=== PATIENT | female | born 1990 | race Caucasian/White ===

== ENCOUNTER 2023-05-13 23:29 | Observation (INO) | payer SELFPAY ==
[2023-05-13] MEDS ORDERED: KETOROLAC TROMETHAMINE 30 MG/1 ML VIAL ONE (23:55)
[2023-05-13] MEDS ORDERED: ONDANSETRON 4 MG/2 ML VIAL ONE (23:55)
[2023-05-14] MEDS: SODIUM CHLORIDE 1,000 ML IV ONE (00:21)
[2023-05-14] MEDS: ONDANSETRON 4 MG/2 ML VIAL IVPUSH ONE (00:21)
[2023-05-14] MEDS: KETOROLAC TROMETHAMINE 30 MG/1 ML VIAL IVPUSH ONE (00:21)
[2023-05-14 01:07] LABS: HEMOGLOBIN 12.6 GM/dL (10.7-15.3)
[2023-05-14 01:08] LABS: EPI CELLS 1 /uL (0-25.1); HYALINE CASTS 4 /uL (0-3.1); URINE APPEARANCE CLOUDY; URINE BACTERIA >9,000 /uL (0-1359); URINE BILIRUBIN NEGATIVE (NEGATIVE); URINE COLOR YELLOW; URINE GLUCOSE (UA) NEGATIVE (NEGATIVE); URINE KETONE TRACE (NEGATIVE); URINE LEUK ESTERASE 2+ (NEGATIVE); URINE NITRITE POSITIVE (NEGATIVE); URINE PROTEIN 2+ (NEGATIVE); URINE RBC 389 /uL (0-23.9); URINE WBC 705 /uL (0-25.8)
[2023-05-14 01:16] LABS: HEMATOCRIT 37.4 % (32.4-45.2); MCH 31.4 pg (25.7-33.7); MCHC 33.5 g/dl (32.0-36.0); MEAN CELL VOLUME 93.6 fl (80-96); MEAN PLT VOLUME 8.4 fl (7.5-11.1); PLATELET COUNT 296 10^3/uL (134-434); RDW 14.2 % (11.6-15.6); WHITE BLOOD COUNT 15.3 K/mm3 (4.0-10.0)
[2023-05-14 01:25] LABS: POTASSIUM 3.7 mmol/L (3.5-5.1)
[2023-05-14 01:27] LABS: CALCIUM 9.2 mg/dL (8.5-10.1)
[2023-05-14 01:28] LABS: ALBUMIN 3.3 g/dl (3.4-5.0)
[2023-05-14 01:31] LABS: CREATININE 0.9 mg/dL (0.55-1.3)
[2023-05-14 01:32] LABS: BILIRUBIN,TOTAL 1.8 mg/dL (0.2-1); TOT PROT 7.4 g/dl (6.4-8.2)
[2023-05-14] MEDS ORDERED: cefTRIAXone SODIUM 1 GM VIAL ONE (02:09)
[2023-05-14] MEDS: CEFTRIAXONE 1,000 MG in DEXTROSE 5%-WATER - 50 ML IVPB ONE (02:25)
[2023-05-14] MEDS ORDERED: DOCUSATE SODIUM 100 MG CAPSULE (FP) PO PRN ×2 (02:38→10:19)
[2023-05-14] MEDS ORDERED: KETOROLAC TROMETHAMINE 15 MG/ML VIAL IVPUSH PRN (02:38)
[2023-05-14] MEDS ORDERED: ONDANSETRON 4 MG/2 ML VIAL IVPUSH PRN ×4 (02:38→10:19)
[2023-05-14] MEDS ORDERED: ACETAMINOPHEN 1000 MG/100 ML BAG IVPB PRN ×3 (02:52→10:19)
[2023-05-14] MEDS: SODIUM CHLORIDE 1,000 ML IV SCH ×2 (04:04→12:31)
[2023-05-14 04:36] VITALS: BMI 26.3
[2023-05-14 06:59] LABS: BASO % 0.2 % (0-2.0); EOS % 0.5 % (0-4.5); HEMATOCRIT 35.7 % (32.4-45.2); HEMOGLOBIN 11.7 GM/dL (10.7-15.3); LYMPH % 7.3 % (8-40); MCH 30.9 pg (25.7-33.7); MCHC 32.8 g/dl (32.0-36.0); MEAN PLT VOLUME 8.3 fl (7.5-11.1); PLATELET COUNT 252 10^3/uL (134-434); RDW 14.3 % (11.6-15.6); WHITE BLOOD COUNT 14.8 K/mm3 (4.0-10.0)
[2023-05-14 07:26] LABS: POTASSIUM 3.8 mmol/L (3.5-5.1)
[2023-05-14 07:27] LABS: CALCIUM 8.2 mg/dL (8.5-10.1)
[2023-05-14 07:28] LABS: BLOOD UREA NITROGEN 14.7 mg/dL (7-18); MAGNESIUM 1.8 mg/dL (1.8-2.4)
[2023-05-14 07:31] LABS: CREATININE 0.8 mg/dL (0.55-1.3)
[2023-05-14] MEDS ORDERED: PROMETHAZINE HCL 25 MG/1 ML VIAL IVPB PRN ×2 (08:26→10:19)
[2023-05-14] MEDS ORDERED: MIDAZOLAM HCL 2 MG/2 ML SINGLE DOSE VIAL ONE (09:01)
[2023-05-14] MEDS ORDERED: FENTANYL CITRATE/PF 50 MCG/ML VIAL ONE ×2 (09:01→09:20)
[2023-05-14] MEDS ORDERED: PROPOFOL 20 ML ONE (09:01)
[2023-05-14] MEDS ORDERED: SODIUM CHLORIDE 0.9% P/F 10 ML VIAL IJ ONE (09:03)
[2023-05-14] MEDS ORDERED: LIDOCAINE HCL/PF 2% SDV 5ML VIAL ONE (09:03)
[2023-05-14] MEDS ORDERED: ceFAZolin SODIUM 1 GM VIAL ONE (09:03)
[2023-05-14] MEDS ORDERED: GENTAMICIN SO4 80 MG/2 ML VIAL ONE (09:08)
[2023-05-14] MEDS: GENTAMICIN SO4 80 MG/2 ML VIAL IVPB ONE (09:17)
[2023-05-14] MEDS: ceFAZolin SODIUM 1 GM VIAL IVPB ONE (09:18)
[2023-05-14] MEDS ORDERED: ONDANSETRON 4 MG/2 ML VIAL ONE (09:24)
[2023-05-14] MEDS ORDERED: DEXAMETHASONE SOD PHOSPHATE 4 MG/1 ML VIAL ONE (09:24)
[2023-05-14] MEDS: IBUPROFEN 800 MG/8 ML IJ IVPB ONE (09:51)
[2023-05-14] MEDS ORDERED: SODIUM CHLORIDE 1,000 ML IV SCH (10:19)
[2023-05-14] MEDS: TAMSULOSIN HCL 0.4 MG CAP PO SCH (12:30)
[2023-05-14 15:02] VITALS: RESP 18
[2023-05-14] MEDS: LACTATED RINGERS SOLUTION 1,000 ML IV SCH ×2 (17:48→17:49)
[2023-05-15] MEDS ORDERED: ACETAMINOPHEN 325 MG TABLET (FP) PO PRN (02:38)
[2023-05-15] MEDS: KETOROLAC TROMETHAMINE 15 MG/ML VIAL IVPUSH PRN (04:58)
[2023-05-15 07:15] LABS: BASO % 0.3 % (0-2.0); EOS % 0.1 % (0-4.5); HEMATOCRIT 30.1 % (32.4-45.2); HEMOGLOBIN 10.3 GM/dL (10.7-15.3); LYMPH % 13.5 % (8-40); MCH 32.2 pg (25.7-33.7); MCHC 34.3 g/dl (32.0-36.0); MEAN CELL VOLUME 93.9 fl (80-96); MEAN PLT VOLUME 8.4 fl (7.5-11.1); MONO % 6.6 % (3.8-10.2); NEUT % 79.5 % (42.8-82.8); PLATELET COUNT 272 10^3/uL (134-434); RDW 13.8 % (11.6-15.6); WHITE BLOOD COUNT 10.2 K/mm3 (4.0-10.0)
[2023-05-15 07:33] LABS: POTASSIUM 4.1 mmol/L (3.5-5.1)
[2023-05-15 07:38] LABS: ALBUMIN 2.6 g/dl (3.4-5.0); BLOOD UREA NITROGEN 9.8 mg/dL (7-18); CALCIUM 8.3 mg/dL (8.5-10.1)
[2023-05-15 07:42] LABS: BILIRUBIN,TOTAL 0.6 mg/dL (0.2-1); CREATININE 0.6 mg/dL (0.55-1.3); TOT PROT 6.1 g/dl (6.4-8.2)
[2023-05-15] MEDS: TAMSULOSIN HCL 0.4 MG CAP PO SCH (08:28)
[2023-05-15] MEDS: CEFTRIAXONE 1 GM in DEXTROSE 5%-WATER - 50 ML IVPB SCH (09:21)
[2023-05-15] MEDS ORDERED: CEFTRIAXONE 1 GM in DEXTROSE 5%-WATER - 50 ML IVPB SCH (10:00)
[2023-05-15 10:32] VITALS: BP 102/68; PULSE 59; TEMP 97.5
== END 2023-05-15 17:33 | disposition home or self-care (01) ==
LOC: FER 23:29 → INTOOBSV 05-14 02:13 → FM/S 05-14 02:13 → OBSVTOIN 05-14 02:13 → UNDOADMOB 05-14 02:42 → FM/S 05-14 02:42 → J7W 05-14 08:31
PROVIDERS: ADMIT Internal Medicine; ATTEND Internal Medicine
CPT/HCPCS: 36415; 74176-TC; 76000-TC-FY; 80048; 80053; 81003; 83735; 85025; 85027; 85730; 94760; 99285-25; C2617; G0378